=== PATIENT | female | born 1985 | race Caucasian/White ===

== ENCOUNTER 2019-09-10 12:00 | Emergency (ER) | payer BC ==
[~2019-09-10 12:00] MED LIST: Iopamidol 370 76% 100 ML VIAL ONE
[2019-09-10 12:46] LABS: #Lymphocytes 1.5 thou/uL (1.20-3.40); #Monocytes 0.9 thou/uL (0.11-0.59); #Neutrophils 4.9 thou/uL (1.40-6.50); %Basophils 0.5 % (0.0-1.0); %Eosinophils 0.2 % (0.0-10.0); %Lymphocytes 20.7 % (21.0-51.0); %Monocytes 11.7 % (0.0-10.0); %Neutrophils 66.9 % (42.0-75.0); Hemoglobin 12.9 g/dL (12.0-16.0); Mean Corpuscular HGB CONC 32.5 g/dL (32.0-36.0); Mean Corpuscular Hemoglobin 31.1 pg (27.0-31.0); Mean Corpuscular Volume 95.8 fL (78.0-98.0); Mean Platelet Volume 10.1 fL (7.4-10.4); Platelet Count 133 thou/uL (130-400); Red Blood Cell (RBC) Count 4.14 mill/uL (4.20-5.40); White Blood Cell (WBC) Count 7.3 thou/uL (4.8-10.8)
[2019-09-10 12:54] LABS: BHCG - Serum Negative (NEGATIVE); Pregs Control Background? CLEAR/WHITE (CLR/WHITE); Pregs Control Bar Appear? YES (CONTROL BAR)
[2019-09-10 13:06] LABS: ALT (SGPT) 10 U/L (8-55); AST (SGOT) 10 U/L (5-34); Albumin 4.4 g/dL (3.5-5.0); Alkaline Phosphatase 54 U/L (40-110); Anion Gap 10 mmol/L (10-20); BUN (Urea Nitrogen) 14 mg/dL (7.0-18.7); Bilirubin, Total 0.9 mg/dL (0.2-1.2); Calc. Creatinine Clearance 0 mL/min (70-130); Calcium 9.7 mg/dL (7.8-10.44); Carbon Dioxide 29 mmol/L (22-29); Chloride 104 mmol/L (98-107); Estimated GFR-MDRD Greater than 90; Globulin 2.7 g/dL (2.4-3.5); Glucose 82 mg/dL (70-105); Lipase 51 U/L (8-78); Potassium 3.9 mmol/L (3.5-5.1); Protein, Total 7.1 g/dL (6.0-8.3); Sodium 139 mmol/L (136-145)
[2019-09-10] MEDS ORDERED: Dexamethasone 10 MG/ML VIAL ONE (13:46)
--- NOTE | 2019-09-10 16:02 | CT ---
CT ANGIOGRAM OF CHEST PERFORMED WITH INTRAVENOUS CONTRAST ENHANCEMENT AND 3D RECONSTRUCTIONS: History: Sharp chest pain. Positive for Covid earlier this month. FINDINGS: The lungs are clear of any infiltrative process. No ground glass opacities are identified. The thoracic aorta is normal in caliber. No significant mediastinal, hilar, or axillary adenopathy. B ilateral breast implants are noted. There is good pulmonary artery opacification and no evidence for pulmonary embolus. The visualized liver parenchyma shows no focal findings. IMPRESSION: No CT evidence for pulmonary embolus. No infiltrative lung process. POS: CARISSA
== END 2019-09-10 14:14 | disposition home or self-care (01) ==
LOC: ERS 12:00
DX: R07.9 Chest pain, unspecified (principal)
CPT/HCPCS: 71275; 80053; 83690; 84484; 84703; 85025; 93005; 96374; J1100; Q9967

== ENCOUNTER 2019-09-15 12:33 | Observation (INO) | payer BC ==
[~2019-09-15 12:33] MED LIST changes: -Iopamidol 370 76% 100 ML VIAL ONE; +Iopamidol-370 76% 500 ML 1 ML ONE
[2019-09-15 13:58] LABS: #Lymphocytes 1.4 thou/uL (1.20-3.40); #Monocytes 0.6 thou/uL (0.11-0.59); #Neutrophils 5.6 thou/uL (1.40-6.50); %Basophils 0.5 % (0.0-1.0); %Eosinophils 0.3 % (0.0-10.0); %Lymphocytes 18.6 % (21.0-51.0); %Monocytes 7.4 % (0.0-10.0); %Neutrophils 73.3 % (42.0-75.0); Hemoglobin 12.9 g/dL (12.0-16.0); Mean Corpuscular HGB CONC 32.4 g/dL (32.0-36.0); Mean Corpuscular Hemoglobin 30.8 pg (27.0-31.0); Mean Platelet Volume 9.8 fL (7.4-10.4); Platelet Count 127 thou/uL (130-400); RBC Distribution Width 13.8 % (11.5-14.5); Red Blood Cell (RBC) Count 4.18 mill/uL (4.20-5.40); White Blood Cell (WBC) Count 7.7 thou/uL (4.8-10.8)
[2019-09-15 14:09] LABS: BHCG - Serum Negative (NEGATIVE); Pregs Control Background? CLEAR/WHITE (CLR/WHITE); Pregs Control Bar Appear? YES (CONTROL BAR)
[2019-09-15 14:12] LABS: PTT 26.6 sec (22.9-36.1); Prothrombin Time 13.6 sec (12.0-14.7)
[2019-09-15 14:13] LABS: D-Dimer Test 1.77 *mcg/mL (0.27-0.43)
[2019-09-15 14:21] LABS: ALT (SGPT) 9 U/L (8-55); AST (SGOT) 11 U/L (5-34); Albumin 4.3 g/dL (3.5-5.0); Alkaline Phosphatase 56 U/L (40-110); Anion Gap 9 mmol/L (10-20); BUN (Urea Nitrogen) 11 mg/dL (7.0-18.7); Bilirubin, Total 0.8 mg/dL (0.2-1.2); CK (CPK) 13 U/L (29-168); Calc. Creatinine Clearance 0 mL/min (70-130); Calcium 9.2 mg/dL (7.8-10.44); Carbon Dioxide 30 mmol/L (22-29); Chloride 103 mmol/L (98-107); Estimated GFR-MDRD Greater than 90; Globulin 2.8 g/dL (2.4-3.5); Glucose 91 mg/dL (70-105); Lipase 37 U/L (8-78); Potassium 4.2 mmol/L (3.5-5.1); Protein, Total 7.1 g/dL (6.0-8.3); Sodium 138 mmol/L (136-145)
--- NOTE | 2019-09-15 14:21 | RAD ---
XR Chest 1 View Portable HISTORY: Chest pain COMPARISON: None FINDINGS: The heart size is normal. The lungs are well expanded without focal areas of consolidation, pneumothorax or pleural effusions. IMPRESSION: No radiographic evidence of acute cardiopulmonary process.
--- NOTE | 2019-09-15 15:26 | CT ---
CTA Angio Chest W WO Con History: Chest pain Comparison: CT angiogram of the chest September 10, 2019 Findings: CT angiogram of the chest performed after the intravenous ministration of contrast. 3-D ignacia dering provided. No proximal segmental pulmonary arterial filling defect. No pericardial effusion. Aortic contour is normal. Lungs are clear. No pneumothorax. No effusion. No suspicious pulmonary nodule. No airspace consolidat ion. Aortic contour is normal. Upper abdomen is unremarkable. Impression: 1. No pulmonary embolism. 2. No acute inflammatory process within the chest.
[2019-09-15] MEDS ORDERED: Morphine 2 MG/ML SYRINGE ONE (17:13)
[2019-09-15] MEDS ORDERED: Aspirin Chewable 81 MG TAB ONE (17:14)
[2019-09-15 18:36] LABS: Troponin I 0.013 ng/mL (< 0.028)
[2019-09-15] MEDS ORDERED: Acetaminophen 325 MG TAB PO PRN (18:57)
[2019-09-15] MEDS ORDERED: Senokot S 8.6-50 MG TAB PO PRN (18:57)
[2019-09-15] MEDS ORDERED: Acetaminophen 500 MG TAB ONE (21:17)
[2019-09-15 21:44] LABS: Troponin I Less than 0.010 ng/mL (< 0.028)
[2019-09-15] MEDS: Famotidine 20 MG TAB PO SCH (21:59)
[2019-09-15] MEDS ORDERED: traMADol HCl 50 MG TAB PO PRN (22:08)
[2019-09-15] MEDS ORDERED: Melatonin 3 MG TAB PO PRN (22:09)
--- NOTE | 2019-09-15 22:21 | PDOC.HHP ---
Hospitalist HPI - History of Present Illness chest pain History of Present Illness: 34F presents to the ED for evaluation of constant chest pain with some dyspnea for over a week. PCP is Dr Lopez in [place]. Patient reports she has been in the ED x3 times in the last week with this chest pain. She denies anything makes it better or worse. She reports being COVID+ over a month ago, denies having much SOB or cough with it. Has had a negative COVID since her original one. Reports she was seen in [place] ED last Wednesday, seen here on Wednesday and then went to a meringuer at [employer] yesterday. She went today to get blood work done and the Restaurant Operations Manager called her this afternoon because her Ddimer was positive. She came here and had a CT scan which was negative for a PE. She reports this chest pain prevents her from being able to do much around the house. ED MD here gave her a short course of steroids thinking the chest pain might be related to a Lupus flair, which the patient has but is not taking any medications for at the moment. She took a 4 mg dose of the steroids yesterday. ED Course: CTA chest was negative for a PE, EKG with NSR, BPM 100, no ST elevations, axis normal. Given ASA and morphine in the ED without relief. Troponin x2 were neg, bloodwork largely unremarkable. Hospitalist ROS - Review of Systems Constitutional: denies: fever, chills, sweats, weakness, malaise, other Eyes: denies: pain, vision change, conjunctivae inflammation, eyelid inflammation, redness, other ENT: denies: ear pain, ear discharge, nose pain, nose discharge, nose congestion , mouth pain, mouth swelling, throat pain, throat swelling, other Respiratory: reports: shortness of breath. denies: cough Cardiovascular: reports: chest pain. denies: edema Gastrointestinal: denies: nausea, vomiting, abdominal pain, diarrhea, constipation, melena, hematochezia, other Genitourinary: denies: dysuria, frequency, incontinence, hematuria, retention, other Musculoskeletal: denies: neck pain, shoulder pain, arm pain, back pain, hand pain, leg pain, foot pain, other Skin: denies: rash, lesions, carmel, bruising, other Neurological: reports: weakness - Medication Medications: Active Medications Generic Name Dose Route Start Last Admin Trade Name Freq PRN Reason Stop Dose Admin Famotidine 20 mg 09/15/19 21:00 09/15/19 21:59 Pepcid PO 20 mg BID ARELI Administration Hospitalist History - Past Medical History Cardiac: reports: no pertinent history 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: 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 Gastrointestinal: reports: no pertinent history Heme/Onc: reports: no pertinent history, Anemia NOS Rheumatologic: reports: Other (Lupus) - Past Surgical History Past Surgical History: reports: Other (Breast augmentation) - Family History Family History: reports: no pertinent history - Social History Smoking Status: Never smoker Alcohol: reports: Occassional Drugs: reports: none Living Situation: With Family - Exam Eye: PERRL ENT: normocephalic atraumatic, moist mucosa Neck: supple, no JVD Heart: RRR, normal peripheral pulses Respiratory: CTAB, normal chest expansion Gastrointestinal: soft, non-tender Extremities: no edema Skin: normal turgor Neurological: no focal deficits Musculoskeletal: normal tone Psychiatric: normal affect, A&O x 3 Hospitalist Results - Labs Result Diagrams: 09/15/19 13:50 09/15/19 13:47 Lab results: WBC 7.7 thou/uL (4.8-10.8) 09/15/19 13:50 Hgb 12.9 g/dL (12.0-16.0) 09/15/19 13:50 Hct 39.7 % (36.0-47.0) 09/15/19 13:50 MCV 95.0 fL (78.0-98.0) 09/15/19 13:50 Plt Count 127 thou/uL (130-400) L 09/15/19 13:50 Neutrophils % 73.3 % (42.0-75.0) 09/15/19 13:50 Sodium 138 mmol/L (136-145) 09/15/19 13:47 Potassium 4.2 mmol/L (3.5-5.1) 09/15/19 13:47 Chloride 103 mmol/L (98-107) 09/15/19 13:47 Carbon Dioxide 30 mmol/L (22-29) H 09/15/19 13:47 BUN 11 mg/dL (7.0-18.7) 09/15/19 13:47 Creatinine 0.66 mg/dL (0.6-1.1) 09/15/19 13:47 Glucose 91 mg/dL (70-105) 09/15/19 13:47 Calcium 9.2 mg/dL (7.8-10.44) 09/15/19 13:47 Total Bilirubin 0.8 mg/dL (0.2-1.2) 09/15/19 13:47 AST 11 U/L (5-34) 09/15/19 13:47 ALT 9 U/L (8-55) 09/15/19 13:47 Alkaline Phosphatase 56 U/L (40-110) 09/15/19 13:47 Creatine Kinase 13 U/L (29-168) L 09/15/19 13:47 Troponin I Less than 0.010 ng/mL (< 0.028) 09/15/19 21:09 Serum Total Protein 7.1 g/dL (6.0-8.3) 09/15/19 13:47 Albumin 4.3 g/dL (3.5-5.0) 09/15/19 13:47 Lipase 37 U/L (8-78) 09/15/19 13:47 Hospitalist H&P A/P - Problem (1) Chest pain Code(s): R07.9 - CHEST PAIN, UNSPECIFIED Status: Acute (2) Elevated d-dimer Code(s): R79.89 - OTHER SPECIFIED ABNORMAL FINDINGS OF BLOOD CHEMISTRY Status : Acute (3) Lupus Code(s): M32.9 - SYSTEMIC LUPUS ERYTHEMATOSUS, UNSPECIFIED Status: Acute (4) COVID-19 virus detected Code(s): U07.1 - COVID-19 Status: Acute - Plan Plan: chest pain: serial troponins, ECHO, cardiology consult Lupus: will monitor (patient just finished steroid burst with no improvement). Covid+ a month ago, now with a negative test GI/DVT prevention Recheck labs in AM, add mag
[2019-09-16] MEDS ORDERED: Fentanyl 100 MCG/2 ML VIAL SLOW IVP PRN (01:51)
[2019-09-16 03:52] LABS: #Eosinphils 0.1 thou/uL (0.0-0.7); #Lymphocytes 2.2 thou/uL (1.20-3.40); #Monocytes 0.5 thou/uL (0.11-0.59); #Neutrophils 3.1 thou/uL (1.40-6.50); %Basophils 0.4 % (0.0-1.0); %Eosinophils 1.1 % (0.0-10.0); %Lymphocytes 36.7 % (21.0-51.0); %Monocytes 9.1 % (0.0-10.0); %Neutrophils 52.6 % (42.0-75.0); Hemoglobin 11.4 g/dL (12.0-16.0); Mean Corpuscular HGB CONC 33.2 g/dL (32.0-36.0); Mean Corpuscular Hemoglobin 31.5 pg (27.0-31.0); Mean Corpuscular Volume 95.1 fL (78.0-98.0); Mean Platelet Volume 9.7 fL (7.4-10.4); Platelet Count 106 thou/uL (130-400); RBC Distribution Width 13.9 % (11.5-14.5); Red Blood Cell (RBC) Count 3.61 mill/uL (4.20-5.40); White Blood Cell (WBC) Count 5.9 thou/uL (4.8-10.8)
[2019-09-16 04:11] LABS: ALT (SGPT) 9 U/L (8-55); AST (SGOT) 8 U/L (5-34); Albumin 3.6 g/dL (3.5-5.0); Alkaline Phosphatase 43 U/L (40-110); Anion Gap 10 mmol/L (10-20); BUN (Urea Nitrogen) 13 mg/dL (7.0-18.7); Bilirubin, Total 0.6 mg/dL (0.2-1.2); Calc. Creatinine Clearance 116 mL/min (70-130); Calcium 8.4 mg/dL (7.8-10.44); Carbon Dioxide 26 mmol/L (22-29); Cardiac Risk 2.8 (Less than 4.5); Chloride 106 mmol/L (98-107); Cholesterol 128 mg/dl (< 200 Desired); Estimated GFR-MDRD Greater than 90; Globulin 2.2 g/dL (2.4-3.5); Glucose 79 mg/dL (70-105); HDL Cholesterol 46 mg/dL (>60 Neg Risk); LDL Cholesterol, Calculated 68 mg/dL; Magnesium 1.8 mg/dL (1.6-2.6); Potassium 3.7 mmol/L (3.5-5.1); Protein, Total 5.8 g/dL (6.0-8.3); Sodium 138 mmol/L (136-145); Triglycerides 72 mg/dL (Less than 150)
[2019-09-16] MEDS: Enoxaparin Sodium 40 MG/0.4 ML SYRINGE SC SCH (09:13)
[2019-09-16] MEDS: Famotidine 20 MG TAB PO SCH ×2 (09:14→20:23)
[2019-09-16] MEDS ORDERED: Ketorolac Tromethamine 30 MG/ML VIAL IVP PRN (10:00)
--- NOTE | 2019-09-16 15:45 | PDOC.HOSPP ---
- Subjective Encounter Date: 09/16/19 Encounter Time: 15:43 Subjective: Ms. Dupree was seen today in follow-up of chest pain. She continues to have severe pain, which is constant. She says it has been limiting her activites of daily living. She says it is so bad she had to move in with her parents. - Objective Vital Signs & Weight: Vital Signs (12 hours) Temp Pulse Resp BP BP Pulse Ox 09/16/19 15:12 98.5 F 90 16 114/73 100 09/16/19 11:32 98.7 F 103 H 16 111/66 97 09/16/19 07:58 98.0 F 87 16 107/66 98 09/16/19 05:46 98.4 F 83 14 104/56 L 98 Weight Weight 116 lb 3.2 oz I&O: 09/15/19 09/16/19 09/17/19 06:59 06:59 06:59 Intake Total 720 Output Total 600 Balance 120 Result Diagrams: 09/16/19 03:39 09/16/19 03:38 Hospitalist ROS - Medication Medications: Active Medications Generic Name Dose Route Start Last Admin Trade Name Freq PRN Reason Stop Dose Admin Acetaminophen 650 mg 09/15/19 18:57 09/16/19 05:59 Tylenol PO 650 mg Q4H PRN Administration Headache/Fever/Mild Pain (1-3) Enoxaparin Sodium 40 mg 09/16/19 09:00 09/16/19 09:13 Lovenox SC Not Given 0900 ARELI Famotidine 20 mg 09/15/19 21:00 09/16/19 09:14 Pepcid PO 20 mg BID ARELI Administration Ketorolac Tromethamine 15 mg 09/16/19 10:00 09/16/19 11:51 Toradol IVP 09/21/19 10:01 15 mg Q6H PRN Administration Pain Tramadol HCl 50 mg 09/15/19 22:08 09/15/19 23:18 Ultram PO 50 mg Q6H PRN Administration Moderate Pain (4-6) - Exam Eye: PERRL Heart: RRR, no murmur, no gallops, no rubs, normal peripheral pulses Respiratory: CTAB, no wheezes, no rales, no ronchi, normal chest expansion Gastrointestinal: soft, non-tender, non-distended, normal bowel sounds, no palpable masses, no hepatomegaly Extremities: no cyanosis, no edema Hosp A/P (1) Chest pain Code(s): R07.9 - CHEST PAIN, UNSPECIFIED Status: Acute - Plan * Chest pain- this may be due to a viral myocarditis. * Await Echo results * Cardiology evaluation is also pending.
[2019-09-16] MEDS ORDERED: Colchicine 0.6 MG TAB PO SCH (16:00)
[2019-09-16] MEDS ORDERED: Indomethacin 25 mg Capsule PO SCH (16:00)
--- NOTE | 2019-09-16 16:22 | CON ---
DATE OF CONSULTATION: 09/16/2019 REASON FOR CONSULTATION: Chest pain. HISTORY OF PRESENT ILLNESS: Ms. Dupree is a very pleasant 34-year-old white female, who comes to the hospital for chest pain. She was diagnosed with COVID-19 about a month ago. She had minimal symptoms. She was actually already tested a second time negative and had noticed that for the last 2 weeks she has been having chest pain. She described this as a dull pain on her upper chest, it goes from the left to the right, it is just across the whole chest. There is nothing that makes it better or worse, no position, no movement. She has seen a poultry process worker at [facility] for this who ordered a D-dimer and an echocardiogram. The echo has not been done, and it is actually scheduled to be done about a month from now. She had her D-dimer resulted as being positive, so she received the call and was told to go immediately to the emergency room for a CT of the chest with contrast to rule out PE. This was done here last night, and she had a negative CT per PE protocol. There was no inflammatory response seen on her chest wall and no blood clot seen. Cardiology has been consulted for further evaluation of her chest pain. PAST MEDICAL HISTORY: 1. History of migraines. 2. History of lupus. 3. History of anemia. PAST SURGICAL HISTORY: Breast augmentation. FAMILY HISTORY: Noncontributory. SOCIAL HISTORY: Social alcohol use. No tobacco or drugs. OUTPATIENT MEDICATIONS: Famotidine p.r.n. ALLERGIES: NO KNOWN DRUG ALLERGIES. REVIEW OF SYSTEMS: A 12-point review of systems was done and was found to be negative other than stated in the history of present illness. PHYSICAL EXAMINATION: VITAL SIGNS: Temperature 98.5, pulse 90, respiratory rate 16, saturating 100% on room air, blood pressure 114/73. GENERAL: Awake, alert, and oriented x3, in no distress. HEENT: Normocephalic and atraumatic. NECK: Supple. LUNGS: Clear. CARDIOVASCULAR: S1 and S2. No S3 or S4. No murmurs. No rubs. ABDOMEN: Soft. Positive bowel sounds. EXTREMITIES: No edema. SKIN: Warm and dry. LABORATORY DATA: Laboratory work was reviewed. White count of 7, hemoglobin of 12, hematocrit of 39, platelet count of 127 down to 106. Coags were normal except for the elevated D-dimer. Chemistries were unremarkable. GFR was 90. Troponin was completely negative x3. test was negative. TSH was normal. Albumin was 3.6. EKG was reviewed. CT of the chest was reviewed. Chest x-ray was reviewed. Echocardiogram was done today, and it shows a very normal echo with normal EF and normal diastolic function. However, there is a very tiny sliver of pericardial effusion on the subxiphoid view. ASSESSMENT: 1. Chest pain. Atypical for angina. 2. Recent COVID-19 pneumonia. 3. Lupus erythematosus. PLAN: 1. Given the very small amount of fluid around her heart and a recent viral infection, I have to assume this is related to a viral pericarditis. We will plan on starting colchicine and indomethacin to see if we can alleviate some of her symptoms. She has received a dose of steroids yesterday, and she did not get any improvement in her symptoms. 2. I have also ordered ESR and CRP. 3. We will leave her n.p.o. post midnight and do a nuclear stress test in the morning Lexiscan, not treadmill. Thank you for letting us participate in the care of this patient. We will follow. Job ID: [id number]
[2019-09-16] MEDS: Colchicine 0.6 MG TAB PO SCH (20:23)
[2019-09-16] MEDS: Indomethacin 25 mg Capsule PO SCH (20:24)
[2019-09-16] MEDS: Gabapentin 300 MG CAP PO SCH (20:43)
[2019-09-17] MEDS: Colchicine 0.6 MG TAB PO SCH ×2 (08:36→20:55)
[2019-09-17] MEDS: Indomethacin 25 mg Capsule PO SCH ×2 (08:36→20:56)
[2019-09-17] MEDS: Famotidine 20 MG TAB PO SCH ×2 (08:36→20:55)
[2019-09-17] MEDS: Enoxaparin Sodium 40 MG/0.4 ML SYRINGE SC SCH (08:38)
[2019-09-17] MEDS ORDERED: Regadenoson 0.4 MG/5 ML SYRINGE ONE (11:06)
--- NOTE | 2019-09-17 14:44 | NM ---
NM Cardiac Stress W EF WF History: Chest pain Comparison: None. Findings: Stress and rest performed after the intravenous administration of 29.8 and 10.2 mCi technet ium 99m sestamibi, respectively. No scar or ischemia. Calculated ejection fraction is 72%. Impression: Normal nuclear medicine cardiac scan.
--- NOTE | 2019-09-17 16:11 | PDOC.HOSPP ---
- Subjective Encounter Date: 09/17/19 Encounter Time: 16:09 Subjective: Ms. Dupree was seen today in follow-up of chest pain. She says she is doing a little better today. No new complaints. - Objective Vital Signs & Weight: Vital Signs (12 hours) Temp Pulse Resp BP Pulse Ox 09/17/19 07:10 97.5 F L 96 15 107/67 99 Weight Weight 115 lb 9.6 oz I&O: 09/16/19 09/17/19 09/18/19 06:59 06:59 06:59 Intake Total 720 1180 Output Total 600 Balance 120 1180 Result Diagrams: 09/16/19 03:39 09/16/19 03:38 Hospitalist ROS - Medication Medications: Active Medications Generic Name Dose Route Start Last Admin Trade Name Freq PRN Reason Stop Dose Admin Acetaminophen 650 mg 09/15/19 18:57 09/16/19 05:59 Tylenol PO 650 mg Q4H PRN Administration Headache/Fever/Mild Pain (1-3) Colchicine 0.6 mg 09/16/19 21:00 09/17/19 08:36 Colchicine PO 0.6 mg BID ARELI Administration Enoxaparin Sodium 40 mg 09/16/19 09:00 09/17/19 08:38 Lovenox SC Not Given 0900 ARELI Famotidine 20 mg 09/15/19 21:00 09/17/19 08:36 Pepcid PO 20 mg BID ARELI Administration Gabapentin 300 mg 09/16/19 21:00 09/16/19 20:43 Neurontin PO 300 mg HS ARELI Administration Indomethacin 50 mg 09/16/19 21:00 09/17/19 08:36 Indocin PO 50 mg BID ARELI Administration Ketorolac Tromethamine 15 mg 09/16/19 10:00 09/16/19 11:51 Toradol IVP 09/21/19 10:01 15 mg Q6H PRN Administration Pain Tramadol HCl 50 mg 09/15/19 22:08 09/15/19 23:18 Ultram PO 50 mg Q6H PRN Administration Moderate Pain (4-6) - Exam Eye: PERRL, anicteric sclera Heart: RRR, no murmur, no gallops, no rubs, normal peripheral pulses Respiratory: CTAB, no wheezes, no rales, no ronchi, normal chest expansion, no tachypnea Gastrointestinal: soft, non-tender, non-distended, normal bowel sounds, no palpable masses, no hepatomegaly Extremities: no cyanosis, no edema Hosp A/P (1) Chest pain Code(s): R07.9 - CHEST PAIN, UNSPECIFIED Status: Acute - Plan * Chest pain- due to viral pericarditis- she has noted some improvement with Cochicine and Indocin * Stress test was negative * Disposition as per Cardiology
--- NOTE | 2019-09-17 17:51 | PDOC.CPN ---
- Subjective Date: 09/17/19 Time: 17:49 Interval history: She is doing better. She states that since addition of colchicine and indomethacine it is the first time she has had any relief from this pain. - Review of Systems General: denies: fever/chills, weight/appetite/sleep changes, night sweats, fatigue Respiratory: denies: cough, congestion, shortness of breath, exercise intolerance Cardiovascular: denies: chest pain, palpitation, edema, paroxysmal nocturnal dyspnea, orthopnea Gastrointestinal: denies: nausea, vomiting, diarrhea, constipation, abd pain, GI bleeding Musculoskeletal: denies: pain, tenderness, stiffness, swelling, arthritis/ arthralgias Neurological: denies: numbness, syncope, seizure, weakness - Objective Allergies/Adverse Reactions: Allergies Allergy/AdvReac Type Severity Reaction Status Date / Time No Known Allergies Allergy Verified 09/16/19 00:45 Visit Medications: Current Medications Acetaminophen (Tylenol) 650 mg PO Q4H PRN PRN Reason: Headache/Fever/Mild Pain (1-3) Last Admin: 09/16/19 05:59 Dose: 650 mg Colchicine (Colchicine) 0.6 mg PO BID [facility] Last Admin: 09/17/19 08:36 Dose: 0.6 mg Enoxaparin Sodium (Lovenox) 40 mg SC 0900 [facility] Last Admin: 09/17/19 08:38 Dose: Not Given Famotidine (Pepcid) 20 mg PO BID [facility] Last Admin: 09/17/19 08:36 Dose: 20 mg Gabapentin (Neurontin) 300 mg PO HS [facility] Last Admin: 09/16/19 20:43 Dose: 300 mg Indomethacin (Indocin) 50 mg PO BID [facility] Last Admin: 09/17/19 08:36 Dose: 50 mg Ketorolac Tromethamine (Toradol) 15 mg IVP Q6H PRN PRN Reason: Pain Stop: 09/21/19 10:01 Last Admin: 09/16/19 11:51 Dose: 15 mg Melatonin (Melatonin) 3 mg PO HS PRN PRN Reason: Insomnia Senna/Docusate Sodium (Senokot S) 2 tab PO BID PRN PRN Reason: Constipation Sodium Chloride (Flush - Normal Saline) 10 ml IVF PRN PRN PRN Reason: Saline Flush Tramadol HCl (Ultram) 50 mg PO Q6H PRN PRN Reason: Moderate Pain (4-6) Last Admin: 09/15/19 23:18 Dose: 50 mg Vital Signs & Weight: Vital Signs Temp Pulse Resp BP BP Pulse Ox 09/17/19 16:04 97.6 F 85 16 106/73 100 09/17/19 07:10 97.5 F L 96 15 107/67 99 Weight 115 lb 9.6 oz - Physical Exam General: alert & oriented x3 HEENT: mucus membranes moist Neck: supple neck Cardiac: regular rate and rhythm Lungs: normal breath sounds Neuro: grossly intact Abdomen: active bowel sounds Extremities: no edema Skin: clear Musculoskeletal: no pain - Labs Result Diagrams: 09/16/19 03:39 09/16/19 03:38 Troponin/CKMB Troponin I Less than 0.010 ng/mL (< 0.028) 09/15/19 21:09 - Telemetry Sinus rhythms and dysrhythmias: sinus rhythm - Assessment/Plan Assessment/Plan: 1. Chest pain. Atypical. Possible pericarditis. 2. Recent COVID-19 pneumonia. 3. Lupus erythematosus. PLAN: - She has a small pericardial effusion on echo and has had relief with colchicine and indomethacine. Continue currnet meds for now. - May discharge home tomorrow morning if she remains stable. - Follow up in the office in 1 month.
[2019-09-17] MEDS: Gabapentin 300 MG CAP PO SCH (20:56)
[2019-09-18] MEDS: Colchicine 0.6 MG TAB PO SCH (08:37)
[2019-09-18] MEDS: Indomethacin 25 mg Capsule PO SCH (08:37)
[2019-09-18] MEDS: Famotidine 20 MG TAB PO SCH (08:37)
[2019-09-18] MEDS: Enoxaparin Sodium 40 MG/0.4 ML SYRINGE SC SCH (08:39)
--- NOTE | 2019-09-18 11:15 | PDOC.HOSPP ---
- Subjective Encounter Date: 09/18/19 Encounter Time: 11:13 Subjective: Ms. Dupree was seen today in follow-up of pericarditis from COVID-19 infection. She is still having some chest pain, and now she notes burning in her chest and stomach pain. She also notes a little diarrhea as well. - Objective Vital Signs & Weight: Vital Signs (12 hours) Temp Pulse Resp BP BP Pulse Ox 09/18/19 07:40 98.2 F 88 13 109/68 09/18/19 03:39 97.9 F 90 16 105/58 L 97 Weight Weight 116 lb 6.4 oz I&O: 09/17/19 09/18/19 09/19/19 06:59 06:59 06:59 Intake Total 1180 1940 Balance 1180 1940 Result Diagrams: 09/16/19 03:39 09/16/19 03:38 Hospitalist ROS - Medication Medications: Active Medications Generic Name Dose Route Start Last Admin Trade Name Freq PRN Reason Stop Dose Admin Acetaminophen 650 mg 09/15/19 18:57 09/16/19 05:59 Tylenol PO 650 mg Q4H PRN Administration Headache/Fever/Mild Pain (1-3) Colchicine 0.6 mg 09/16/19 21:00 09/18/19 08:37 Colchicine PO 0.6 mg BID ARELI Administration Enoxaparin Sodium 40 mg 09/16/19 09:00 09/18/19 08:39 Lovenox SC Not Given 0900 ARELI Famotidine 20 mg 09/15/19 21:00 09/18/19 08:37 Pepcid PO 20 mg BID ARELI Administration Gabapentin 300 mg 09/16/19 21:00 09/17/19 20:56 Neurontin PO 300 mg HS ARELI Administration Indomethacin 50 mg 09/16/19 21:00 09/18/19 08:37 Indocin PO 50 mg BID ARELI Administration Ketorolac Tromethamine 15 mg 09/16/19 10:00 09/16/19 11:51 Toradol IVP 09/21/19 10:01 15 mg Q6H PRN Administration Pain Sodium Chloride 10 ml 09/15/19 18:57 09/17/19 20:56 Flush - Normal Saline IVF 10 ml PRN PRN Administration Saline Flush Tramadol HCl 50 mg 09/15/19 22:08 09/15/19 23:18 Ultram PO 50 mg Q6H PRN Administration Moderate Pain (4-6) - Exam Eye: PERRL, anicteric sclera Heart: RRR, no murmur, no gallops, no rubs, normal peripheral pulses Respiratory: CTAB, no wheezes, no rales, no ronchi, normal chest expansion, no tachypnea Gastrointestinal: soft, non-tender, non-distended, normal bowel sounds, no palpable masses Extremities: no cyanosis, no edema Hosp A/P (1) Acute pericarditis Code(s): I30.9 - ACUTE PERICARDITIS, UNSPECIFIED Status: Acute (2) Chest pain Code(s): R07.9 - CHEST PAIN, UNSPECIFIED Status: Acute - Plan * Acute periciarditis- continue Indocin, and will consider whether to continue colchicine due to side effects * Hopefully home later today
[2019-09-18] MEDS ORDERED: Lidocaine 2% Viscous Solution 20 ML, Aluminum & Magnesium Hydroxide 30 ML, Donnatal Eli... SSW SCH (11:45)
--- NOTE | 2019-09-18 12:59 | PDOC.CPN ---
- Subjective Date: 09/18/19 Time: 12:58 Interval history: Continues to have chest pain but better. Developed diarrhea with colchicine. - Review of Systems General: denies: fever/chills, weight/appetite/sleep changes, night sweats, fatigue Respiratory: denies: cough, congestion, shortness of breath, exercise intolerance Cardiovascular: reports: chest pain. denies: palpitation, edema, paroxysmal nocturnal dyspnea, orthopnea Gastrointestinal: reports: diarrhea. denies: nausea, vomiting, constipation, abd pain, GI bleeding Musculoskeletal: denies: pain, tenderness, stiffness, swelling, arthritis/ arthralgias Neurological: denies: numbness, syncope, seizure, weakness - Objective Allergies/Adverse Reactions: Allergies Allergy/AdvReac Type Severity Reaction Status Date / Time No Known Allergies Allergy Verified 09/16/19 00:45 Visit Medications: Current Medications Acetaminophen (Tylenol) 650 mg PO Q4H PRN PRN Reason: Headache/Fever/Mild Pain (1-3) Last Admin: 09/16/19 05:59 Dose: 650 mg Colchicine (Colchicine) 0.6 mg PO BID [facility] Last Admin: 09/18/19 08:37 Dose: 0.6 mg Lidocaine HCl 20 ml/ Al Hydroxide/Mg Hydroxide 30 ml/Atropine/Hyoscyam/Phenobarb /Scopol 32.4 mg 0 ml SSW NOW [facility] Stop: 09/18/19 13:45 Enoxaparin Sodium (Lovenox) 40 mg SC 0900 [facility] Last Admin: 09/18/19 08:39 Dose: Not Given Famotidine (Pepcid) 20 mg PO BID [facility] Last Admin: 09/18/19 08:37 Dose: 20 mg Gabapentin (Neurontin) 300 mg PO HS [facility] Last Admin: 09/17/19 20:56 Dose: 300 mg Indomethacin (Indocin) 50 mg PO BID [facility] Last Admin: 09/18/19 08:37 Dose: 50 mg Ketorolac Tromethamine (Toradol) 15 mg IVP Q6H PRN PRN Reason: Pain Stop: 09/21/19 10:01 Last Admin: 09/16/19 11:51 Dose: 15 mg Melatonin (Melatonin) 3 mg PO HS PRN PRN Reason: Insomnia Senna/Docusate Sodium (Senokot S) 2 tab PO BID PRN PRN Reason: Constipation Sodium Chloride (Flush - Normal Saline) 10 ml IVF PRN PRN PRN Reason: Saline Flush Last Admin: 09/17/19 20:56 Dose: 10 ml Tramadol HCl (Ultram) 50 mg PO Q6H PRN PRN Reason: Moderate Pain (4-6) Last Admin: 09/15/19 23:18 Dose: 50 mg Vital Signs & Weight: Vital Signs Temp Pulse Resp BP BP Pulse Ox 09/18/19 11:40 98.5 F 88 14 107/68 99 09/18/19 07:40 98.2 F 88 13 109/68 09/18/19 03:39 97.9 F 90 16 105/58 L 97 Weight 116 lb 6.4 oz - Physical Exam General: alert & oriented x3 HEENT: mucus membranes moist Neck: supple neck Cardiac: regular rate and rhythm Lungs: normal breath sounds Neuro: grossly intact Abdomen: active bowel sounds Extremities: no edema Skin: clear Musculoskeletal: no pain - Labs Result Diagrams: 09/16/19 03:39 09/16/19 03:38 Troponin/CKMB Troponin I Less than 0.010 ng/mL (< 0.028) 09/15/19 21:09 - Telemetry Sinus rhythms and dysrhythmias: sinus rhythm - Assessment/Plan Assessment/Plan: 1. Chest pain. Atypical. Possible pericarditis. 2. Recent COVID-19 pneumonia. 3. Lupus erythematosus. PLAN: - She has a small pericardial effusion on echo and has had relief with colchicine and indomethacine. Continue current meds for now. - Will add PPI. - Cut colchicine in half if diarrhea persists. - May discharge home - Follow up in the office in 2-4 weeks.
[2019-09-18 14:59] VITALS: BMI 18.8
[2019-09-18 19:01] VITALS: BP 110/67; TEMP 98.2
--- NOTE | 2019-09-19 02:35 | DIS ---
DATE OF ADMISSION: 09/15/2019 DATE OF DISCHARGE: 09/18/2019 DISCHARGE DISPOSITION: Home. DISCHARGE DIAGNOSES: 1. Acute viral pericarditis. 2. Recent COVID-19 infection. DISCHARGE MEDICATIONS: Include; 1. Indocin 50 mg p.o. b.i.d. 2. Colchicine 0.6 mg p.o. b.i.d. 3. Gabapentin 300 mg p.o. at bedtime. IMAGING DONE DURING THE HOSPITAL STAY: The patient had an echocardiogram, which demonstrated a small pericardial effusion and the patient also had a nuclear stress test, which was negative for any reversible ischemia. CODE STATUS: Full code. ALLERGIES: NO KNOWN DRUG ALLERGIES. HOSPITAL COURSE: Ms. Dupree is a pleasant 34-year-old female who presented to the emergency room with complaints of severe substernal chest pain. It would be worse when she lays back. She had a recent diagnosis of COVID-19 pneumonia; however, had tested negative recently. She was placed in observation. Cardiology was consulted as well as obtaining an echocardiogram. Her findings are consistent with pericarditis as well as her history. She was started on Indocin and colchicine and got some relief with that and was subsequently able to be discharged home. She is to have close followup with Dr. Malone in approximately 1 month. Job ID: [id number]
== END 2019-09-18 18:46 | disposition home or self-care (01) ==
LOC: ERS 12:33 → 2NO 18:11
PROVIDERS: ADMIT Internal Medicine; ATTEND Internal Medicine
DX: I30.1 Infective pericarditis (principal); B94.8 Sequelae of other specified infectious and parasitic diseases; R79.89 Other specified abnormal findings of blood chemistry; M32.9 Systemic lupus erythematosus, unspecified; Z79.899 Other long term (current) drug therapy
CPT/HCPCS: 36415; 71045; 71275; 78452; 80053; 80061; 82550; 83690; 83735; 84443; 84484; 84703; 85025; 85379; 85610; 85652; 85730; 86140; 93005; 93017; 93306; 96361; 96374; 96375; 96376; A9500; G0378; J1885; J2270; J2785; J3010; Q9967

== ENCOUNTER 2019-11-03 15:08 | Outpatient (CLI) | payer BC ==
--- NOTE | 2019-11-03 19:31 | CT ---
CTA Angio Chest W WO Con History: Acute pericarditis with chest pain. Comparison: CT angiogram chest September 15, 2019 Findings: CT in July chest performed after the intravenous ministration of contrast. 3-D rendering pr ovided. Aortic contour is normal. No pulmonary embolism. No pericardial effusion. Upper abdomen is normal. Lungs are clear. No pneumothorax. No effusion. No suspicious pulmonary nodule. No consolidation. Ribs are intact. Patent ductus arteriosus. Impression: 1. No aortic dissection or pulmonary embolism. 2. Patent ductus arteriosus. 3. Conventional angiography is necessary for subclavian vessel evaluation. 4. No significant pericardial effusion.
== END 2019-11-03 15:09 | disposition home or self-care (01) ==
LOC: BICCT 15:08
PROVIDERS: ATTEND Internal Medicine Cardiovascular Disease
DX: I30.9 Acute pericarditis, unspecified (principal); R07.9 Chest pain, unspecified; M79.606 Pain in leg, unspecified
CPT/HCPCS: 71275; Q9967